=== PATIENT | female | born 1995 | race Caucasian/White ===

== ENCOUNTER 2017-04-21 19:21 | Emergency (ER) | payer OTHER ==
[~2017-04-21] VITALS: Ht 170.2 cm; Wt 66.8 kg
[2017-04-21 19:22] VITALS: BP 111/59; TEMP 99
[2017-04-21 20:08] VITALS: PULSE 67
== END 2017-04-21 20:10 | disposition home or self-care (01) ==
LOC: COL.ER 19:21
DX: S61.210A Laceration without foreign body of right index finger without damage to nail, initial encounter (principal); Z23 Encounter for immunization; W25.XXXA Contact with sharp glass, initial encounter; Y92.69 Other specified industrial and construction area as the place of occurrence of the external cause; Y99.0 Civilian activity done for income or pay

== ENCOUNTER 2017-04-29 17:28 | Emergency (ER) | payer OTHER ==
[2017-04-29 17:33] VITALS: BP 115/61; PULSE 71; TEMP 98.8
== END 2017-04-29 17:36 | disposition home or self-care (01) ==
LOC: COL.ER 17:28
DX: S61.210D Laceration without foreign body of right index finger without damage to nail, subsequent encounter (principal)